=== PATIENT | male | born 1950 | race Caucasian/White ===

== ENCOUNTER 2022-05-27 04:05 | Inpatient (IN) | payer OTHER, BC ==
[2022-05-23 12:20] VITALS: BMI 30.4
[2022-05-27] MEDS ORDERED: PROPOFOL 20 ML ONE (07:13)
[2022-05-27] MEDS ORDERED: LIDOCAINE HCL 2% 100 MG/5 ML DISP.SYRIN ONE (07:13)
[2022-05-27] MEDS ORDERED: MIDAZOLAM HCL 2 MG/2 ML SINGLE DOSE VIAL ONE (07:14)
[2022-05-27] MEDS ORDERED: ACETAMINOPHEN 1000 MG/100 ML BAG IVPB ONE (07:34)
[2022-05-27] MEDS ORDERED: KETOROLAC TROMETHAMINE 30 MG/1 ML VIAL ONE (07:42)
[2022-05-27] MEDS ORDERED: DEXAMETHASONE SOD PHOSPHATE 4 MG/1 ML VIAL ONE (07:42)
[2022-05-27] MEDS ORDERED: ONDANSETRON 4 MG/2 ML VIAL ONE (07:42)
[2022-05-27] MEDS ORDERED: ceFAZolin SODIUM 1 GM VIAL ONE (07:42)
[2022-05-27] MEDS ORDERED: ceFAZolin SODIUM 1 GM VIAL IVPB ONE (07:42)
[2022-05-27] MEDS ORDERED: oxyCODONE HCL 5 MG TABLET PO PRN ×2 (08:24)
[2022-05-27] MEDS ORDERED: ONDANSETRON 4 MG/2 ML VIAL IVPUSH PRN (08:24)
[2022-05-27] MEDS ORDERED: PROMETHAZINE HCL 25 MG/1 ML VIAL IVPUSH PRN (08:24)
[2022-05-27] MEDS ORDERED: LACTATED RINGERS SOLUTION 1,000 ML IV SCH (08:30)
[2022-05-27] MEDS ORDERED: ACETAMINOPHEN INJECTION 100 ML IVPB ONE (09:04)
[2022-05-27 09:44] LABS: BASO % 0.2 % (0-2.0); EOS % 1.7 % (0-4.5); HEMATOCRIT 35.9 % (35.4-49); HEMOGLOBIN 12.3 GM/dL (11.7-16.9); LYMPH % 8.4 % (8-40); MCH 30.6 pg (25.7-33.7); MCHC 34.3 g/dl (32.0-35.9); MEAN CELL VOLUME 89.1 fl (80-96); MEAN PLT VOLUME 7.4 fl (7.5-11.1); NEUT % 86.7 % (42.8-82.8); PLATELET COUNT 89 10^3/uL (134-434); RBC 4.03 M/mm3 (4.00-5.60); RDW 13.2 % (11.9-15.9)
[2022-05-27 10:08] LABS: CALCIUM 9.5 mg/dL (8.5-10.1)
[2022-05-27 10:09] LABS: BLOOD UREA NITROGEN 34.2 mg/dL (7-18)
[2022-05-27 10:12] LABS: CREATININE 2.1 mg/dL (0.55-1.3)
[2022-05-27] MEDS: DEXTROSE 5%-0.45% SALINE 1,000 ML IV SCH ×2 (13:00→13:10)
[2022-05-27] MEDS: TAMSULOSIN HCL 0.4 MG CAP PO SCH (15:10)
[2022-05-27] MEDS ORDERED: CEFAZOLIN 1 GM in DEXTROSE 5%-WATER 50 ML IVPB SCH (18:00)
[2022-05-27] MEDS: CEFAZOLIN 1 GM in DEXTROSE 5%-WATER - 50 ML IVPB SCH (18:29)
[2022-05-27 21:22] VITALS: RESP 20
[2022-05-28] MEDS: CEFAZOLIN 1 GM in DEXTROSE 5%-WATER - 50 ML IVPB SCH ×2 (02:05→10:32)
[2022-05-28 10:08] LABS: EOS % 0.2 % (0-4.5); HEMATOCRIT 32.3 % (35.4-49); HEMOGLOBIN 11.5 GM/dL (11.7-16.9); LYMPH % 6.9 % (8-40); MCH 31.1 pg (25.7-33.7); MCHC 35.5 g/dl (32.0-35.9); MEAN CELL VOLUME 87.6 fl (80-96); MEAN PLT VOLUME 7.3 fl (7.5-11.1); MONO % 5.9 % (3.8-10.2); PLATELET COUNT 88 10^3/uL (134-434); RBC 3.69 M/mm3 (4.00-5.60); RDW 13.2 % (11.9-15.9); WHITE BLOOD COUNT 14.4 K/mm3 (4.0-10.0)
[2022-05-28 10:15] LABS: CALCIUM 8.7 mg/dL (8.5-10.1)
[2022-05-28 10:16] LABS: BLOOD UREA NITROGEN 29.5 mg/dL (7-18)
[2022-05-28 10:19] LABS: CREATININE 1.6 mg/dL (0.55-1.3)
[2022-05-28] MEDS: TAMSULOSIN HCL 0.4 MG CAP PO SCH (10:32)
[2022-05-28] MEDS: DEXTROSE 5%-0.45% SALINE 1,000 ML IV SCH (10:33)
[2022-05-29 08:06] VITALS: BP 136/84; PULSE 76; TEMP 98.6
[2022-05-29] MEDS: TAMSULOSIN HCL 0.4 MG CAP PO SCH (09:16)
== END 2022-05-29 12:02 | disposition home or self-care (01) | DRG 713 ==
LOC: JASUSAT 04:05 → JASU-SURG 04:05 → J8W 13:28 → JASUSAT 05-28 22:04
PROVIDERS: ADMIT Urology; ATTEND Urology
PROC: 0VB08ZZ Excision of Prostate, Via Natural or Artificial Opening Endoscopic (ICD-10-PCS; principal; 2022-05-27 07:30)
DX: N40.1 Benign prostatic hyperplasia with lower urinary tract symptoms (principal); N13.30 Unspecified hydronephrosis; R33.8 Other retention of urine; N99.89 Other postprocedural complications and disorders of genitourinary system; Y83.9 Surgical procedure, unspecified as the cause of abnormal reaction of the patient, or of later complication, without mention of misadventure at the time of the procedure
CPT/HCPCS: 36415; 80048; 85025; 88305-TC; 94760